=== PATIENT | male | born 1960 | race Caucasian/White ===

== ENCOUNTER 2022-09-16 07:33 | Day surgery (SDC) | payer OTHER, BC ==
[~2022-09-16 07:33] MED LIST: Bupivacaine 0.5% 30 ML SDV ONE
[2022-09-16] MEDS ORDERED: Albuterol/Ipratropium 3.0-0.5 MG/3 ML Neb Soln NEB ONE (08:10)
[2022-09-16] MEDS ORDERED: Lactated Ringers 1,000 ML IV SCH (08:15)
[2022-09-16] MEDS ORDERED: Nozin Nasal Sanitizer NASBOTH ONE (08:30)
[2022-09-16 08:35] LABS: BASOPHILS PERCENT AUTO 0.4 % (0.1-1.3); EOSINOPHILS ABSOLUTE AUTO 0.24 K/uL (0.00-0.40); EOSINOPHILS PERCENT AUTO 5.1 % (0.0-5.4); HEMATOCRIT 46.3 % (38.4-49.7); HEMOGLOBIN 15.2 g/dL (12.9-16.9); IMMATURE GRAN PERCENT AUTO 0.2 % (0.0-0.7); LYMPHOCYTES ABSOLUTE AUTO 1.21 K/uL (0.8-3.3); LYMPHOCYTES PERCENT AUTO 25.9 % (11.4-47.7); MEAN CORPUSCULAR HEMOGLOBIN 31.1 pg (31.6-35.5); MEAN CORPUSCULAR HGB CONC 32.8 g/dL (31.6-35.5); MEAN CORPUSCULAR VOLUME 94.7 fL (81.4-99.0); MONOCYTES ABSOLUTE AUTO 0.53 K/uL (0.20-0.90); MONOCYTES PERCENT AUTO 11.3 % (3.3-12.6); NEUTROPHILS ABSOLUTE AUTO 2.66 K/uL (1.0-7.6); NEUTROPHILS PERCENT AUTO 57.1 % (40.0-78.1); PLATELET COUNT,PLT 197 K/uL (130-375); RED BLOOD CELL COUNT 4.89 M/uL (4.14-5.76); WHITE BLOOD CELL COUNT,WBC 4.7 K/uL (3.2-11.0)
[2022-09-16 08:36] LABS: BASOPHILS ABSOLUTE AUTO 0.02 K/uL (0.00-0.10); IMMATURE GRAN ABSOLUTE AUTO 0.01 K/uL (0.00-0.23)
[2022-09-16] MEDS ORDERED: fentaNYL 100 MCG/2 ML SDV ONE (08:52)
[2022-09-16] MEDS ORDERED: Midazolam 1 MG/ML 2 ML SDV ONE (08:52)
[2022-09-16] MEDS ORDERED: Propofol 200 MG/20 ML SDV ONE ×3 (08:52→11:14)
[2022-09-16] MEDS ORDERED: Bupivacaine 0.5% 30 ML SDV ONE (08:54)
[2022-09-16 08:55] LABS: ALANINE AMINOTRANSFERASE,ALT 27 U/L (12-78); ALBUMIN 3.6 g/dL (3.4-5.0); ALKALINE PHOSPHATASE 60 U/L (46-116); ASPARTATE AMNIOTRANSFERASE,AST 21 U/L (15-37); BILIRUBIN TOTAL 0.6 mg/dL (0.2-1.0); BLOOD UREA NITROGEN,BUN 15 mg/dL (7-18); CALCIUM 8.7 mg/dL (8.5-10.1); CARBON DIOXIDE,CO2 26 mmol/L (21-32); CHLORIDE,CL 105 mmol/L (100-108); CREATININE 0.9 mg/dL (0.8-1.3); EST CRCL DRUG DOSING (CG) 90.12 mL/min; ESTIMATED GFR 98 mL/min (>60); GLUCOSE RANDOM 99 mg/dL (74-106); POTASSIUM,K 4.2 mmol/L (3.6-5.2); PROTEIN TOTAL,TP 7.1 g/dL (6.4-8.2); SODIUM,NA 138 mmol/L (140-148)
[2022-09-16 08:57] LABS: ANION GAP 11.2 mmol/L (5.0-14.0)
[2022-09-16] MEDS ORDERED: Scopolamine 1.5 MG Transdermal Patch TOP SCH (09:00)
[2022-09-16] MEDS ORDERED: ceFAZolin 1 GM in Premix Bag 1 BAG IV ONE (09:00)
[2022-09-16] MEDS ORDERED: Ondansetron 4 MG/2 ML SDV ONE (10:36)
[2022-09-16] MEDS ORDERED: Dexamethasone 4 MG/ML SDV ONE (10:37)
[2022-09-16] MEDS ORDERED: Lactated Ringers 1,000 ML ONE (11:15)
[2022-09-16] MEDS ORDERED: Acetaminophen/oxyCODONE 325-5 MG Tab PO ONE (13:30)
== END 2022-09-16 13:41 | disposition home or self-care (01) ==
LOC: JP.SDS 07:33
PROVIDERS: ATTEND Specialist
DX: M75.41 Impingement syndrome of right shoulder (principal); M75.111 Incomplete rotator cuff tear or rupture of right shoulder, not specified as traumatic; J45.909 Unspecified asthma, uncomplicated
CPT/HCPCS: 29826; 29827; 36415; 80053; 85025; 94640; A9270; C1713; J0690; J1100; J2250; J2405; J2704; J3010; J3490; J7120; J7620

== ENCOUNTER 2023-12-22 06:18 | Day surgery (SDC) | payer OTHER, BC ==
[2023-12-22] MEDS: Lactated Ringers 1,000 ML IV SCH (06:44)
[2023-12-22 06:52] LABS: HEMATOCRIT 44.5 % (38.4-49.7); HEMOGLOBIN 15.2 g/dL (12.9-16.9); MEAN CORPUSCULAR HEMOGLOBIN 31.9 pg (31.6-35.5); MEAN CORPUSCULAR HGB CONC 34.2 g/dL (31.6-35.5); MEAN CORPUSCULAR VOLUME 93.3 fL (81.4-99.0); RED BLOOD CELL COUNT 4.77 M/uL (4.14-5.76); WHITE BLOOD CELL COUNT,WBC 5.3 K/uL (3.2-11.0)
[2023-12-22] MEDS: Nozin Nasal Sanitizer NASBOTH ONE (07:02)
[2023-12-22 07:07] LABS: CALCIUM 8.8 mg/dL (8.5-10.1); CREATININE 1.1 mg/dL (0.8-1.3); EST CRCL DRUG DOSING (CG) 72.82 mL/min; POTASSIUM,K 4.3 mmol/L (3.6-5.2)
[2023-12-22 07:09] LABS: ANION GAP 11.3 mmol/L (5.0-14.0)
[2023-12-22] MEDS ORDERED: Propofol 200 MG/20 ML SDV ONE ×2 (07:09→09:05)
[2023-12-22] MEDS ORDERED: fentaNYL 100 MCG/2 ML SDV ONE (07:09)
[2023-12-22] MEDS ORDERED: Midazolam 1 MG/ML 2 ML SDV ONE (07:10)
[2023-12-22] MEDS: Scopalamine 1mg/3day Transdermal Patch TOP SCH (07:16)
[2023-12-22] MEDS: ceFAZolin 2 GM in Premix Bag 1 BAG IV ONE (07:55)
[2023-12-22] MEDS ORDERED: Ondansetron 4 MG/2 ML SDV ONE (08:31)
[2023-12-22] MEDS ORDERED: Dexamethasone 4 MG/ML SDV ONE (08:31)
[2023-12-22] MEDS: Acetaminophen/HYDROcodone 325-5 MG Tab PO PRN (10:11)
[2023-12-22] MEDS ORDERED: VERIFY SCOP PATCH TOP SCH (16:00)
== END 2023-12-22 10:55 | disposition home or self-care (01) ==
LOC: JP.SDS 06:18
PROVIDERS: ATTEND Specialist
DX: M75.41 Impingement syndrome of right shoulder (principal); M19.011 Primary osteoarthritis, right shoulder; M75.101 Unspecified rotator cuff tear or rupture of right shoulder, not specified as traumatic; I10 Essential (primary) hypertension
CPT/HCPCS: 01630; 29824; 29826; 36415; 80048; 85027; A9270; C1713; J0690; J1100; J2250; J2405; J2704; J3010; J7120